=== PATIENT | male | born 1970 | race Caucasian/White ===

== ENCOUNTER → 2016-08-12 | Outpatient (CLI) | payer OTHER ==
[2016-08-12 11:53] LABS: Aty Lym Flag Slight; CH 29.6; HDW 2.47; MCH 30.2 pg (25.0-35.0); MCHC 32.5 g/dL (31.0-37.0); MCV 92.9 fL (80.0-100.0); Mean Platelet Volume 7.5; RBC 4.63 m/uL (4.30-5.90); RDW 15.3 % (11.5-15.5); WBC 3.4 k/uL (3.8-10.6); WBC (Perox) 3.45
[2016-08-12 12:06] LABS: ALT 78 U/L (21-72); AST 153 U/L (17-59); Alkaline Phosphatase 146 U/L (38-126); Anion Gap 16 mmol/L; Blood Urea Nitrogen 5 mg/dL (9-20); Calcium 8.8 mg/dL (8.4-10.2); Carbon Dioxide 27 mmol/L (22-30); Chloride 109 mmol/L (98-107); Glucose 144 mg/dL (74-99); Non-African American GFR(MDRD) >60 (>60 ml/min/1.73 sqM); Potassium 4.3 mmol/L (3.5-5.1); Sodium 152 mmol/L (137-145); Total Bilirubin 0.8 mg/dL (0.2-1.3); Total Protein 8.6 g/dL (6.3-8.2)
[2016-08-12 12:26] LABS: Add Differential Manual Differential
[2016-08-12 12:29] LABS: Manual Review Performed; Nucleated Red Blood Cells 0 /100 WBC (0-0); Total Cells Counted 100
[2016-08-12 13:09] LABS: Vitamin B12 590 pg/mL (239-931)
== END | disposition home or self-care (01) ==
LOC: LABWHC1 11:10
PROVIDERS: ATTEND Physician Assistant
DX: F10.20 Alcohol dependence, uncomplicated (principal); B18.2 Chronic viral hepatitis C; G40.A09 Absence epileptic syndrome, not intractable, without status epilepticus
CPT/HCPCS: 36415; 80053; 82140; 82607; 82746; 85025